=== PATIENT | female | born 1940 | race Caucasian/White ===

== ENCOUNTER → 2016-08-29 | Outpatient (CLI) | payer MEDICARE ==
[2014-06-18 15:00] VITALS: BP 116/65
[~2016-08-29] MED LIST: ASPI325T4 PO; CALC-112 PO; CETI10CA PO; CHOL400T2 PO; FAMO40TA4 PO; FLAX100031 PO; FLUT1DIS3 IH; MELA3TAB PO; MONT10TA6 PO; OMEP20CA9 PO; OMEP20TA PO; ONDA4TAB10 SL; OXYB5TAB7 PO; POTA20TA84 PO; VALS1TAB33 PO; VENTOLIN HFA18 GM IH
--- NOTE | 2016-08-29 13:38 | KCIC ---
PQRS STATEMENT One or more of the following individualized dose reduction techniques were utilized for this study:1.Automated exposure control. 2.Adjustment of the mA and/orkVaccording to patient size. 3.Use of iterative reconstruction technique CT chest. Indication: Reason For Study Reason: NODULE ON 1ST RIB / Spl. Instructions: / History: Abnormality seen on Xray at Dr Knapp, hx asthma TECHNIQUE Multiple contiguous axial images were obtained through the chest. Coronal reformations were created. Findings: There is no axillary adenopathy. Evaluation of the mediastinum and chinyere are limited in the absence of IV contrast but no gross adenopathy is identified. Heart size is normal. There is a tiny pericardial effusion. Coronary artery calcifications are noted. The thoracic aorta is normal in caliber. There are non consolidating infiltrates mostly within the right lower lobe to a lesser degree within the inferior aspect of the right upper lobe. There is also some linear atelectasis in the bilateral posterior sulci. There is no pleural effusion or pneumothorax. Limited subdiaphragmatic evaluation demonstrates a right adrenal nodule with Hounsfield units measuring less than 10 consistent with characteristics of an adrenal adenoma. No destructive osseous lesion is identified. No rib nodule is identified. There is a 1.4 centimeter left thyroid hypodense nodule. Impression: - Non consolidating infiltrate scattered in the right lung mostly in the right lower lobe. This could represent non consolidating pneumonia. - 1.4 centimeter left thyroid nodule. This could be further evaluated by thyroid ultrasound if clinically warranted. - Coronary artery disease. - Right adrenal adenoma. Electronically signed by: Eren Mena (Aug 29, 2016 13:36:19)
== END | disposition home or self-care (01) ==
LOC: KCIC CT 12:30
PROVIDERS: ATTEND Family Medicine
DX: I25.10 Atherosclerotic heart disease of native coronary artery without angina pectoris (principal); I31.3 Pericardial effusion (noninflammatory); D35.01 Benign neoplasm of right adrenal gland; R91.8 Other nonspecific abnormal finding of lung field; J98.11 Atelectasis
CPT/HCPCS: 71250